=== PATIENT | female | born 1990 | race American Indian/Alaskan Native ===

== ENCOUNTER 2017-01-24 10:06 | Emergency (ER) | payer MEDICAID ==
--- NOTE | 2017-01-24 11:07 | Emergency Department Report ---
Entered by AILEEN GUIDO, acting as scribe for CHRISTIAN HARDEN NP. Chief Complaint: Abdominal Pain Stated Complaint: X10 WKS/LOWER ABD PAIN Time Seen by Provider: 01/24/17 10:44 - HPI History of Present Illness: 26 y/o female presents to the ED c/o lower abdominal pain. Denies fever and chills. Patient is 10 weeks . NKDA. PT states she found out she was on Monday. Estimated 10 weeks, no OB/ HEAD OF ICT care this - ROS Review of Systems: Lower abdominal pain. Denies fever and chills. n/v x 1 month - vaginal bleeding - dysuria - Exam Vital Signs: Vital Signs 01/24/17 10:47 Temperature 99.5 F Pulse Rate 70 Respiratory 17 Rate Blood Pressure 108/62 O2 Sat by Pulse 100 Oximetry Physical Exam: pt looks well, non toxic. left lower pelvic ttp MSE screening note: Focused history and physical exam performed. Due to findings the following was ordered: labs, us ED Disposition for MSE Condition: Stable Instructions: Abdominal Pain (ED) This documentation as recorded by the scribe,AILEEN GUIDO,accurately reflects the service I personally performed and the decisions made by ,CHRISTIAN HARDEN NP.
[2017-01-24 11:50] LABS: Basophils % (Auto) 0.3 % (0.0-1.8); Hematocrit 38.4 % (30.3-42.9); Hemoglobin 12.6 gm/dl (10.1-14.3); Mean Corpuscular HGB Conc 33 % (30-34); Mean Corpuscular Hemoglobin 30 pg (28-32); Mean Corpuscular Volume 91 fl (79-97); Platelet Count 334 K/mm3 (140-440); Red Cell Distribution Width 13.2 % (13.2-15.2); White Blood Count 7.8 K/mm3 (4.5-11.0)
[2017-01-24 12:01] LABS: INR 1.01 (0.87-1.13)
[2017-01-24 12:02] LABS: Alanine Aminotransferase 7 units/L (7-56); Albumin/Globulin Ratio 1.3 %; Alkaline Phosphatase 27 units/L (35-129); Anion Gap 16 mmol/L; Blood Urea Nitrogen 9 mg/dL (7-17); Calcium 8.9 mg/dL (8.4-10.2); Carbon Dioxide 23 mmol/L (22-30); Chloride 100.7 mmol/L (98-107); Glucose 132 mg/dL (65-100); Partial Thromboplastin Time 23.4 Sec. (24.2-36.6); Potassium 3.9 mmol/L (3.6-5.0); Sodium 136 mmol/L (137-145); Total Protein 7.1 g/dL (6.3-8.2)
[2017-01-24 12:04] LABS: Bilirubin,Urine NEG (Negative); Blood,Urine NEG (Negative); Ketones,Urine TR mg/dL (Negative); Leukocyte Esterase,Urine NEG (Negative); Mucus,Urine 3+ /HPF; Nitrite,Urine NEG (Negative); Protein,Urine <15 mg/dL mg/dL (Negative)
--- NOTE | 2017-01-24 13:16 | Ultrasound Report ---
ULTRASOUND OB LESS THAN 14 WEEKS FETUS ULTRASOUND OB TRANSVAGINAL HISTORY: Left pelvic pain during . TECHNIQUE: Transabdominal and transvaginal ultrasound with color and spectral doppler interrogation. The uterus measures 10 x 6 x 7 cm. An intrauterine gestational sac is identified containing a tiny pole and yolk sac. No heart rate could be detected. Zearing-rump length measures 4.7 mm which correlates with a 6 week, 1 day . A small subchorionic hemorrhage is also identified. The ovaries are normal size, contour and echotexture. No adnexal cyst or mass. No pelvic fluid collection. IMPRESSION: Findings concerning for demise. See above.
--- NOTE | 2017-01-24 15:43 | Emergency Department Report ---
ED Abdominal Pain HPI - General Chief Complaint: Abdominal Pain Stated Complaint: X10 WKS/LOWER ABD PAIN Time Seen by Provider: 01/24/17 10:44 Source: patient Mode of arrival: Ambulatory Limitations: No Limitations - History of Present Illness Initial Comments: This is a 26-year-old female well-nourished with nontoxic or ill in appearance that presents with left lower abdominal pain and left lower pelvic pain 1 month that is intermittent. Patient describes pain as aching/sharp with a level of a 3 out of a 10. Currently patient denies any abdominal pain or pelvic pain in the ED. Patient is concerned because she states she is 10 weeks . Patient states she found out she was last Monday. Patient estimated that she is 10 weeks due to last menstrual period which was 11/13/2016. Patient stated that her menstrual period is very irregular. Patient denies having a GUN REPAIR CLERK care for this . Patient denies any vaginal bleeding or discharge. Denies fever, chills, headache, stiff neck, dysuria, polyuria, back pain, chest pain, shortness of breath, numbness, or tingling. Mother is present at bedside. No known drug allergies. No significant medical history. MD Complaint: abdominal pain (left lower ), other (pelvic pain, left) -: Gradual, month(s) (1) Location: LUQ Radiation: none Migration to: no migration Severity scale (0 -10): 0 Consistency: intermittent Improves With: nothing Worsens With: nothing Associated Symptoms: denies other symptoms. denies: nausea, vomiting, diarrhea , fever, chills, constipation, dysuria, hematemesis, hematochezia, melena, hematuria, anorexia, syncope - Related Data LMP Date: 11/13/16 Previous Rx's Medication Instructions Recorded Last Taken Type Ibuprofen [Motrin 600 MG tab] 600 mg PO Q8H PRN #20 tablet 01/24/17 Unknown Rx metroNIDAZOLE [Flagyl] 500 mg PO Q12HR 7 Days 01/24/17 Unknown Rx Allergies Allergy/AdvReac Type Severity Reaction Status Date / Time No Known Allergies Allergy Verified 01/24/17 10:52 ED Review of Systems ROS: Stated complaint: X10 WKS/LOWER ABD PAIN Other details as noted in HPI Constitutional: denies: chills, fever Eyes: denies: eye pain, eye discharge, vision change ENT: denies: ear pain, throat pain Respiratory: denies: cough, shortness of breath, wheezing Cardiovascular: denies: chest pain, palpitations Endocrine: no symptoms reported Gastrointestinal: denies: abdominal pain, nausea, diarrhea Genitourinary: denies: urgency, dysuria, discharge Musculoskeletal: denies: back pain, joint swelling, arthralgia Skin: denies: rash, lesions Neurological: denies: headache, weakness, paresthesias Psychiatric: denies: anxiety, depression Hematological/Lymphatic: denies: easy bleeding, easy bruising ED Past Medical Hx - Past Medical History Previous Medical History?: No - Surgical History Past Surgical History?: No - Social History Smoking Status: Never Smoker Substance Use Type: Marijuana - Medications Home Medications: Home Medications Medication Instructions Recorded Confirmed Last Taken Type Ibuprofen [Motrin 600 MG tab] 600 mg PO Q8H PRN #20 tablet 01/24/17 Unknown Rx metroNIDAZOLE [Flagyl] 500 mg PO Q12HR 7 Days 01/24/17 Unknown Rx ED Physical Exam - General Limitations: No Limitations General appearance: alert, in no apparent distress - Head Head exam: Present: atraumatic, normocephalic, normal inspection - Eye Eye exam: Present: normal appearance, PERRL, EOMI. Absent: scleral icterus, conjunctival injection, nystagmus, periorbital swelling, periorbital tenderness Pupils: Present: normal accommodation - ENT ENT exam: Present: normal exam, normal orophraynx, mucous membranes moist, TM's normal bilaterally, normal external ear exam - Neck Neck exam: Present: normal inspection, full ROM. Absent: tenderness, meningismus, lymphadenopathy, thyromegaly - Respiratory Respiratory exam: Present: normal lung sounds bilaterally. Absent: respiratory distress, wheezes, rales, rhonchi, stridor, chest wall tenderness, accessory muscle use, decreased breath sounds, prolonged expiratory - Cardiovascular Cardiovascular Exam: Present: regular rate, normal rhythm, normal heart sounds. Absent: bradycardia, tachycardia, irregular rhythm, systolic murmur, diastolic murmur, rubs, gallop - GI/Abdominal GI/Abdominal exam: Present: soft, normal bowel sounds. Absent: distended, tenderness, guarding, rebound, rigid, organomegaly - Expanded GI/Abdominal Exam Expanded GI/Abdominal exam: Absent: psoas sign, obturator sign, heel tap sign, Hayes's sign, Rovsing's sign, tenderness at Mcburney's Point, ascites - Rectal Rectal exam: Present: deferred - External exam: Present: normal external exam. Absent: erythema, swelling, lesions, lacerations, ecchymosis, bleeding Speculum exam: Present: normal speculum exam, vaginal discharge (foul odor with thick white discharge), other (Chaperoned Oyinola Donnie present during exam. Opened OS. No signs of bleeding noted.). Absent: erythema, cervical discharge, vaginal bleeding, foreign body, tissue, laceration Bi-manual exam: Present: normal bi-manual exam, other (Chaperoned Oyinola Donnie present during exam.). Absent: cervical motion tendernes, adnexal tenderness, adnexal mass, uterine enlargement, uterine tenderness - Extremities Exam Extremities exam: Present: normal inspection, full ROM, normal capillary refill. Absent: tenderness, pedal edema, joint swelling, calf tenderness - Back Exam Back exam: Present: normal inspection, full ROM. Absent: tenderness, CVA tenderness (R), CVA tenderness (L), muscle spasm, paraspinal tenderness, vertebral tenderness, rash noted - Neurological Exam Neurological exam: Present: alert, oriented X3, CN II-XII intact, normal gait, reflexes normal - Psychiatric Psychiatric exam: Present: normal affect, normal mood - Skin Skin exam: Present: warm, dry, intact, normal color. Absent: rash ED Course Vital Signs 01/24/17 01/24/17 10:47 16:54 Temperature 99.5 F Pulse Rate 70 74 Respiratory 17 20 Rate Blood Pressure 108/62 Blood Pressure 108/66 [Left] O2 Sat by Pulse 100 98 Oximetry ED Medical Decision Making - Lab Data Result diagrams: 01/24/17 11:20 01/24/17 11:20 - Medical Decision Making Ed course: This is a 26-year-old female that presents with pelvic and abd pain intermittent times one month and BV Patient was examined by myself. CBC, BMP, UA, quantitative hCG, PT, INR, hepatic panel, type and screen,and wet prep has [place]. [place] [address] with no history of quantitative result. Pelvic and transvaginal just has been obtained. Dictated by Dr. Espinosa. Impression; intrauterine gestational age sac is identified containing a tiny pole and yolk sac. No heart rate could be detected. Correlate with a 6 week 1 day . A small subchronic hemorrhage is also identified. A bimanual and speculum exam has been obtained. OS is opened. No signs of bleeding or pus. Positive foul odor white thick drainage has been noted. Wet prep has been sent to lab. Alex VAUGHN has been present during exam. Patient felt well with no signs of distress. A notify the patient my concerns of missed AB. The notified to the patient that due to no history of hCG and ultrasound that is stating no heart tones and measuring the gestational age of 6 week 1 day and my concern of a missed AB. I also Notify the patient that due to her abnormal menstrual period this may not be a missed AB due to no signs of bleeding and sometimes at 6 weeks a heart tone is not identified. Patient received Fagyl at the time of d/c Patient was instructed to follow-up with a GUN REPAIR CLERK in 24 hours to rule out missed AB. Patient was notified of the quantitative hCG so the primary care doctor/ply cutter has a baseline from today. At time time of discharge, the patient does not seem toxic or ill in appearance. No acute signs of distress noted. Patient agrees to discharge treatment plan of care. No further questions noted by the patient. Critical care attestation.: If time is entered above; I have spent that time in minutes in the direct care of this critically ill patient, excluding procedure time. ED Disposition Clinical Impression: Pelvic pain, Bacterial vaginosis Abdominal pain Qualifiers: Abdominal location: left lower quadrant Qualified Code(s): R10.32 - Left lower quadrant pain Disposition: TO HOME OR SELFCARE Is pt being admited?: No Does the pt Need Aspirin: No Condition: Stable Instructions: (ED), Bacterial Vaginosis (ED), Abdominal Pain (ED) Additional [place]: [place] [address]. Please relay the message to your GUN REPAIR CLERK. Follow-up with a GUN REPAIR CLERK in 24 hours. If you develops symptoms of heavy vaginal bleeding or abdominal pain that is unbearable return to emergency room as soon as possible. Prescriptions: Ibuprofen [Motrin 600 MG tab] 600 mg PO Q8H PRN #20 tablet PRN Reason: Pain metroNIDAZOLE [Flagyl] 500 mg PO Q12HR 7 Days Referrals: FLAKITO VELAZQUEZ JR, MD [Staff Physician] - 3-5 Days [facility] [Outside] - 3-5 Days [facility] [Outside] - 3-5 Days ANNA MURCIA MD [Staff Physician] - 24 Hours [facility] [Provider Group] - 24 Hours Forms: Work/School Release Form(ED), STI Treatment and Prevention
[2017-01-24 16:55] VITALS: BP 108/66
== END 2017-01-24 16:54 | disposition home or self-care (01) ==
LOC: ED 10:06
DX: O23.591 Infection of other part of genital tract in pregnancy, first trimester (principal); N76.0 Acute vaginitis; F12.10 Cannabis abuse, uncomplicated; Z3A.01 Less than 8 weeks gestation of pregnancy
CPT/HCPCS: 36415; 76801; 76817; 80053; 81001; 84702; 85025; 85610; 85730; 86900; 86901; 87210

== ENCOUNTER 2018-09-30 18:20 | Outpatient (CLI) | payer OTHER, MEDICAID ==
[2018-09-30] MEDS ORDERED: LACTATED RINGERS 1,000 ML IV ONE (19:37)
[2018-09-30 20:17] LABS: Bilirubin,Urine NEG (Negative); Blood,Urine NEG (Negative); Color,Urine Yellow (Yellow); Mucus,Urine 1+ /HPF; Protein,Urine <15 mg/dL mg/dL (Negative); Urobilinogen,Urine < 2.0 mg/dL (<2.0)
[2018-09-30 22:22] VITALS: BP 90/52
== END 2018-09-30 23:02 | disposition home or self-care (01) ==
LOC: TRG 18:20
PROVIDERS: ATTEND Obstetrics & Gynecology
DX: O9A.212 Injury, poisoning and certain other consequences of external causes complicating pregnancy, second trimester (principal); O47.02 False labor before 37 completed weeks of gestation, second trimester; Z3A.22 22 weeks gestation of pregnancy; X58.XXXA Exposure to other specified factors, initial encounter; Y93.89 Activity, other specified; Y92.89 Other specified places as the place of occurrence of the external cause; Y99.8 Other external cause status
CPT/HCPCS: 81001

== ENCOUNTER 2019-01-29 18:07 | Inpatient (IN) | payer MEDICAID ==
[2019-01-29] MEDS ORDERED: MINERAL OIL PO PRN (19:39)
[2019-01-29] MEDS ORDERED: BRETHINE SUB-Q PRN (19:39)
[2019-01-29] MEDS ORDERED: XYLOCAINE 2% INFILTRATI ONE ×2 (19:39→22:40)
[2019-01-29] MEDS ORDERED: BRETHINE IVP PRN (19:39)
[2019-01-29] MEDS ORDERED: SUBLIMAZE IV PRN (19:39)
[2019-01-29 19:51] LABS: Hematocrit 31.9 % (30.3-42.9); Hemoglobin 11.5 gm/dl (10.1-14.3); Mean Corpuscular HGB Conc 36 % (30-34); Mean Corpuscular Volume 88 fl (79-97); Platelet Count 375 K/mm3 (140-440); Red Cell Distribution Width 14.1 % (13.2-15.2)
[2019-01-29] MEDS ORDERED: LACTATED RINGERS 1,000 ML IV SCH (20:00)
[2019-01-29] MEDS ORDERED: PITOCin/NS 20 UNIT/1000ML DRIP 20 UNITS/1,000 ML BAG IV SCH ×2 (20:00→23:45)
[2019-01-29] MEDS ORDERED: AMPICILLIN/NS 2 GM/100 ML 2 GM/100 ML BAG IV ONE (20:00)
[2019-01-29] MEDS ORDERED: NARCAN 2 MG/2 ML IV PRN (21:47)
--- NOTE | 2019-01-29 21:50 | Anesthesia Consultation ---
Anesthesia Consult and Med Hx Date of service: 01/29/19 - Airway Anesthetic Teeth Evaluation: Good ROM Head & Neck: Adequate Mental/Hyoid Distance: Adequate Mallampati Class: Class II Intubation Access Assessment: Probably Good - Pulmonary Exam CTA: Yes - Cardiac Exam Cardiac Exam: RRR - Pre-Operative Health Status ASA Pre-Surgery Classification: ASA2 Proposed Anesthetic Plan: Epidural - Pulmonary Hx Smoking: No Hx Asthma: No Hx Respiratory Symptoms: No SOB: No COPD: No Home Oxygen Therapy: No Hx Pneumonia: No Hx Sleep Apnea: No - Cardiovascular System Hx Hypertension: No Hx Coronary Artery Disease: No Hx Heart Attack/AMI: No Hx Angina: No Hx Percutaneous Transluminal Coronary Angioplasty (PTCA): No Hx Cardia Arrhythmia: No Hx Pacemaker: No Hx Internal Defibrillator: No Hx Valvular Heart Disease: No Hx Heart Murmur: No Hx Peripheral Vascular Disease: No - Central Nervous System Hx Neuromuscular Disorder: No Hx Seizures: No CVA: No Hx Back Pain: No Hx Psychiatric Problems: No - Gastrointestinal Hx Ulcer: No Hx Gastroesophageal Reflux Disease: Yes - Endocrine Hx Renal Disease: No Hx End Stage Renal Disease: No Hx Cirrhosis: No Hx Liver Disease: No Hx Insulin Dependent Diabetes: No Hx Non-Insulin Dependent Diabetes: No Hx Thyroid Disease: No Hx Hypothyroidism: No Hx Hyperthyroidism: No - Hematic Hx Anemia: Yes Hx Sickle Cell Disease: No - Other Systems Hx Alcohol Use: No Hx Substance Use: No Hx Cancer: No Hx Obesity: No
[2019-01-29] MEDS ORDERED: fentaNYL-BUPIV 2 MCG/ML-0.125% 200 MCG/100 ML BAG EPIDURAL SCH (22:00)
--- NOTE | 2019-01-29 22:27 | History and Physical Report ---
History of Present Illness Date of examination: 01/29/19 Date of admission: 01/29/19 19:51 Chief complaint: contractions and my water broke History of present illness: This is a 28 yo EDC at weeks here for contractions and noted to be 3 cm in office and progressed to 7 cm and water broke during triage visit. [facility] Past History Past Medical History: no pertinent history, other (anemia ) Past Surgical History: no surgical history Family/Genetic History: none Social history: single. denies: smoking, alcohol abuse, prescription drug abuse - Obstetrical History Expected Date of Delivery: 01/28/19 Actual Gestation: 40 Week(s) 1 Day(s) : 2 Para: 0 Hx # Term Pregnancies: 0 Number of Pregnancies: 0 Spontaneous Abortions: 1 Induced : 0 Number of Living Children: 0 Medications and Allergies Allergies Allergy/AdvReac Type Severity Reaction Status Date / Time No Known Allergies Allergy Verified 01/24/17 10:52 Home Medications Medication Instructions Recorded Confirmed Last Taken Type Ferrous Sulfate [Iron] 1 tab PO DAILY 09/30/18 09/30/18 09/29/18 History Vit,Calc76/Iron/Folic 1 tab PO DAILY 09/30/18 09/30/18 09/28/18 History [Pnv 29-1 Tablet] Ferrous Sulfate [Feosol 325 MG tab] 325 mg PO BID #30 tablet 01/29/19 Unknown Rx Ibuprofen [Motrin] 600 mg PO Q8H PRN #30 tablet 01/29/19 Unknown Rx oxyCODONE /ACETAMINOPHEN [Percocet 1 tab PO Q6HR PRN #30 tablet 01/29/19 Unknown Rx 5/325] Active Meds: Active Medications Ephedrine Sulfate (Ephedrine Sulfate) 10 mg IV Q2M PRN PRN Reason: Hypotension Fentanyl (Sublimaze) 100 mcg IV Q2H PRN PRN Reason: Labor Pain Oxytocin/Sodium Chloride (Pitocin/Ns 20 Unit/1000ml Drip) 20 units in 1,000 mls @ 125 mls/hr IV DIRECT YOCASTA Lactated Ringer's (Lactated Ringers) 1,000 mls @ 125 mls/hr IV DIRECT YOCASTA Last Admin: 01/29/19 20:10 Dose: 125 mls/hr Documented by: Ampicillin Sodium (Ampicillin/Ns 1 Gm/50 Ml) 1 gm in 50 mls @ 100 mls/hr IV Q4H YOCASTA; Protocol Fentanyl/Bupivacaine/Sodium Chlor (Fentanyl-Bupiv 2 Mcg/Ml-0.125%) 200 mcg in 100 mls @ 12 mls/hr EPIDURAL TITR YOCASTA; Protocol Mineral Oil (Mineral Oil) 30 ml PO QHS PRN PRN Reason: Constipation Naloxone HCl (Narcan 2 Mg/2 Ml) 0.2 mg IV Q5M PRN PRN Reason: Respiratory sedation Terbutaline Sulfate (Brethine) 0.25 mg SUB-Q ONCE PRN PRN Reason: Hyperstimulation/Hypertonicity Terbutaline Sulfate (Brethine) 0.25 mg IVP ONCE PRN PRN Reason: Hyperstimulation/Hypertonicity Review of Systems All systems: negative - Vital Signs Vital signs: Vital Signs Pulse BP 85 115/56 01/29/19 19:12 01/29/19 19:12 Temp Pulse Resp BP Pulse Ox 98.9 F 139 H 20 122/56 100 01/29/19 19:16 01/29/19 22:18 01/29/19 19:16 01/29/19 22:18 01/29/19 21:39 - Physical Exam Breasts: Positive: normal Cardiovascular: Regular rate, Normal S1 Lungs: Positive: Clear to auscultation, Normal air movement Abdomen: Positive: normal appearance, soft, normal bowel sounds. Negative: distention, tenderness, guarding Genitourinary (Female): Positive: normal external genitalia, normal perenium Vulva: both: normal Vagina: Positive: normal moisture Uterus: Positive: normal size Anus/Rectum: Positive: normal perianal skin Extremities: Positive: normal Deep Tendon Reflex Grade: Normal +2 - Obstetrical FHR: category 1 Cervical Dilatation: 7 Cervical Effacement Percentage: 100 station: 0 Uterine Contraction Pattern: Regular Uterine Tone Measurement Phase: Contraction Uterine Contraction Intensity: Strong/Firm Results Result Diagrams: 01/29/19 19:40 Abnormal lab results 01/29/19 Range/Units 19:40 RBC 3.60 L (3.65-5.03) M/mm3 MCHC 36 H (30-34) % All other labs normal. Assessment and Plan A/P IUP 40+1 weeks GBS unknown - abx given offer epidural ivf, labs expect vaginal delivery
[2019-01-29] MEDS ORDERED: NORCO 5/325 PO PRN (23:06)
[2019-01-29] MEDS ORDERED: ZOFRAN IV PRN (23:06)
[2019-01-29] MEDS ORDERED: MILK OF MAGNESIA PO PRN (23:06)
[2019-01-29] MEDS ORDERED: ANUCORT-HC PR PRN (23:06)
[2019-01-29] MEDS ORDERED: TUCKS PAD TP PRN (23:06)
[2019-01-29] MEDS ORDERED: LANSINOH TP PRN (23:06)
[2019-01-29] MEDS ORDERED: PHENERGAN PR PRN (23:06)
[2019-01-29] MEDS ORDERED: PHENERGAN PO PRN (23:06)
[2019-01-29] MEDS ORDERED: DULCOLAX PR PRN (23:06)
[2019-01-29] MEDS ORDERED: TYLENOL PO PRN (23:06)
[2019-01-29] MEDS ORDERED: PERCOCET 5/325 PO PRN (23:06)
[2019-01-29] MEDS ORDERED: BENADRYL PO PRN (23:06)
[2019-01-29] MEDS ORDERED: TORADOL IV PRN (23:06)
--- NOTE | 2019-01-29 23:12 | Procedure Note ---
OB Delivery Note - Delivery Date of Delivery: 01/29/19 Surgeon: ARI TALAVERA Estimated blood loss: 300cc - Vaginal Delivery presentation: vertex Delivery position: OA Delivery induction: none Delivery augmentation: rupture of membranes Delivery monitor: external FHT, external uterine Route of delivery: Delivery placenta: spontaneous Delivery cord: 3 umbilical vessels Episiotomy: none Delivery laceration: 2nd degree Delivery repair: vicryl Anesthesia: local, epidural Delivery comments: Patient was noted to have bulging membranes. AROM with clear fluid. Patient commenced to pushing a viable male infant at 2229 with apgars 8 and 9. Placenta delivered intact with three vessel cord at 2236. A laceration noted to be se cond degree. Weight of the baby 6 pounds 15oz. EBL 200 cc. Patient tolerated procedure well.
[2019-01-29] MEDS ORDERED: AMPICILLIN/NS 1 GM/50 ML 1 GM/50 ML BAG IV SCH (23:40)
[2019-01-29] MEDS ORDERED: SODIUM CHLORIDE FLUSH SYRINGE 10 ML IV PRN (23:45)
[2019-01-30] MEDS ORDERED: DERMOPLAST TP PRN (04:03)
[2019-01-30] MEDS: IBUPROFEN PO SCH ×4 (06:30→23:06)
--- NOTE | 2019-01-30 08:07 | Progress Note ---
Assessment and Plan Vital signs stable Nursing well Awaiting pp hgb results. Admission hgb was 11.5 mg/dL. Plan for discharge to home tomorrow. Subjective - Subjective Date of service: 01/30/19 Principal diagnosis: Interval history: Pt is PPD1 s/p on 01/29 at 2229. She sustained a second degree laceration, repaired, and EBL was 200mL. Patient reports: appetite normal, voiding normally, pain well controlled, ambulating normally : doing well, nursing well Objective - Vital Signs Latest vital signs: Vital Signs Temp Pulse Resp BP BP Pulse Ox 01/30/19 04:10 98.2 F 88 18 104/68 97 01/30/19 02:03 98.0 F 91 H 20 107/66 98 01/30/19 02:00 98.0 F 91 H 18 107/66 98 01/30/19 00:48 101 H 118/67 01/30/19 00:35 97.3 F L 01/30/19 00:33 101 H 119/63 01/30/19 00:18 100 H 122/66 01/30/19 00:15 99 H 125/68 01/29/19 23:33 99 H 113/54 01/29/19 23:32 101 H 120/56 01/29/19 23:03 107 H 116/56 01/29/19 22:48 112 H 114/56 01/29/19 22:36 112 H 127/60 01/29/19 22:33 117 H 127/60 01/29/19 22:18 139 H 122/56 01/29/19 22:03 108 H 120/57 01/29/19 22:01 111 H 111/55 01/29/19 21:59 109 H 101/51 01/29/19 21:57 121/61 01/29/19 21:55 100 H 115/61 01/29/19 21:53 78 98/54 01/29/19 21:51 80 93/52 01/29/19 21:49 81 118/62 01/29/19 21:48 75 114/58 01/29/19 21:45 96 H 106/57 01/29/19 21:43 83 111/58 01/29/19 21:41 77 116/57 01/29/19 21:39 85 122/61 100 01/29/19 21:37 100 H 120/57 01/29/19 21:35 81 112/59 01/29/19 21:34 85 100 01/29/19 21:33 92 H 116/57 01/29/19 21:31 90 119/56 01/29/19 21:29 97 H 123/62 91 01/29/19 21:18 96 H 97 01/29/19 21:09 90 122/81 01/29/19 20:54 96 H 122/66 01/29/19 20:38 80 123/82 01/29/19 20:30 98.6 F 18 01/29/19 19:16 98.9 F 85 20 01/29/19 19:12 85 115/56 Intake and Output 01/29/19 01/30/19 01/30/19 23:59 07:59 15:59 Intake Total 360 Output Total 700 800 Balance -700 -440 Intake: Oral 360 Output: Urine 700 800 Indwelling Catheter 700 Void 800 Other: Total, Intake Amount 240 Total, Output Amount 700 800 Weight 150 lb Estimated Blood Loss 300 - Exam Breasts: Present: deferred Cardiovascular: Present: Regular rate, Normal S1, Normal S2, No murmurs Lungs: Present: Clear to auscultation, Normal air movement Abdomen: Present: normal appearance, soft Uterus: Present: normal, firm, fundal height below umbilicus Extremities: Present: normal - Labs Labs: Abnormal lab results 01/29/19 Range/Units 19:40 RBC 3.60 L (3.65-5.03) M/mm3 MCHC 36 H (30-34) %
--- NOTE | 2019-01-30 08:08 | Discharge Summary ---
Providers - Providers Date of Admission: 01/29/19 19:51 Date of discharge: 01/31/19 Attending physician: ARI TALAVERA MD Primary care physician: ARI TALAVERA MD Hospitalization Reason for admission: active labor Delivery: Episiotomy: none Laceration: 2nd degree Other procedures: none complications: none Discharge diagnosis: IUP at term delivered baby: male Condition at discharge: Good Disposition: DC-01 TO HOME OR SELFCARE Plan - Discharge Medications Prescriptions: Ferrous Sulfate [Feosol 325 MG tab] 325 mg PO BID #30 tablet Ibuprofen [Motrin] 600 mg PO Q8H PRN #30 tablet PRN Reason: Pain oxyCODONE /ACETAMINOPHEN [Percocet 5/325] 1 tab PO Q6HR PRN #30 tablet PRN Reason: Pain - Provider Discharge Summary Activity: routine, no sex for 6 weeks, no heavy lifting 4 weeks, no strenuous exercise Diet: routine Instructions: routine Additional instructions: [] Smoking cessation referral if applicable(refer to patient education folder for contact #) [] Refer to [facility] Booklet Call your doctor immediately for: * Fever > 100.5 * Heavy vaginal bleeding ( >1 pad per hour) * Severe persistent headache * Shortness of breath * Reddened, hot, painful area to leg or breast * Drainage or odor from incision. * Keep incision clean and dry at all times and follow doctor's instructions regarding bathing/showering - Follow up plan Follow up: ARI TALAVERA MD [Primary Care Provider] - 6 Weeks (Please call to schedule appointment)
[2019-01-30] MEDS: PRENATAL VITAMIN PO SCH (10:11)
[2019-01-30] MEDS: COLACE PO SCH ×2 (10:11→23:08)
[2019-01-30] MEDS: SENOKOT S PO SCH ×3 (10:12→23:08)
[2019-01-30 12:40] LABS: Hematocrit 26.9 % (30.3-42.9)
[2019-01-30] MEDS ORDERED: M-M-R II VACCINE SUB-Q ONE (23:06)
[2019-01-31] MEDS ORDERED: BOOSTRIX IM ONE (06:00)
[2019-01-31] MEDS: IBUPROFEN PO SCH ×3 (06:10→20:20)
--- NOTE | 2019-01-31 08:11 | Progress Note ---
Assessment and Plan A/P PPD2, breast feeding well. Vital signs stable. Ok for discharge to home today Anemia, iron supplementation F/u with [facility] at 2 weeks or 4-6 weeks Subjective - Subjective Date of service: 01/31/19 Principal diagnosis: Interval history: Pt is PPD2 s/p on 01/29 at 2229. She sustained a second degree laceration, repaired, and EBL was 200mL. Patient reports: appetite normal, voiding normally, pain well controlled, ambulating normally : doing well, nursing well Objective - Vital Signs Latest vital signs: Vital Signs Temp Pulse Resp BP BP Pulse Ox 01/31/19 00:12 97.7 F 96 H 20 109/58 98 01/30/19 17:06 98.2 F 94 H 18 113/65 01/30/19 13:28 99.0 F 87 18 107/57 01/30/19 08:30 98.2 F 90 18 111/59 Intake and Output 01/30/19 01/31/19 01/31/19 23:59 07:59 15:59 Intake Total 480 120 Balance 480 120 Intake: Oral 480 Intake, Free Water 120 Other: Total, Intake Amount 480 # Voids Void 1 1 - Exam Breasts: Present: normal Cardiovascular: Present: Regular rate, Normal S1, Normal S2, No murmurs Lungs: Present: Clear to auscultation, Normal air movement Abdomen: Present: normal appearance, soft Uterus: Present: normal, firm, fundal height at umbilicus Extremities: Present: normal - Labs Labs: Abnormal lab results 01/30/19 Range/Units 11:58 Hgb 9.0 L (10.1-14.3) gm/dl Hct 26.9 L (30.3-42.9) %
[2019-01-31] MEDS: SENOKOT S PO SCH ×2 (10:00→21:34)
[2019-01-31] MEDS: COLACE PO SCH ×2 (10:23→21:40)
[2019-01-31] MEDS: PRENATAL VITAMIN PO SCH (10:23)
[2019-01-31 17:47] VITALS: BP 103/56
== END 2019-01-31 22:00 | disposition home or self-care (01) | DRG 775 ==
LOC: TRG 18:07 → LD 19:51 → OBSVTOIN 19:51 → OB 01-30 01:45
PROVIDERS: ADMIT Obstetrics & Gynecology; ATTEND Obstetrics & Gynecology
PROC: 10E0XZZ Delivery of Products of Conception, External Approach (ICD-10-PCS; principal; 2019-01-29)
PROC: 0KQM0ZZ Repair Perineum Muscle, Open Approach (ICD-10-PCS; 2019-01-29)
PROC: 10907ZC Drainage of Amniotic Fluid, Therapeutic from Products of Conception, Via Natural or Artificial Opening (ICD-10-PCS; 2019-01-29)
PROC: 3E0R3BZ Introduction of Anesthetic Agent into Spinal Canal, Percutaneous Approach (ICD-10-PCS; 2019-01-29)
PROC: 00HU33Z Insertion of Infusion Device into Spinal Canal, Percutaneous Approach (ICD-10-PCS; 2019-01-29)
PROC: 3E0234Z Introduction of Serum, Toxoid and Vaccine into Muscle, Percutaneous Approach (ICD-10-PCS; 2019-01-30)
DX: O99.62 Diseases of the digestive system complicating childbirth (principal); Z3A.40 40 weeks gestation of pregnancy; Z37.0 Single live birth; Z23 Encounter for immunization; K21.9 Gastro-esophageal reflux disease without esophagitis; O99.02 Anemia complicating childbirth; O70.1 Second degree perineal laceration during delivery
CPT/HCPCS: 36415; 85014; 85018; 85027; 86592; 86850; 86900; 86901; 90471; 90715; G0378; A6250; J0290; J2590; J3010; J3105; J7120